=== PATIENT | female | born 1990 | race Caucasian/White ===

== ENCOUNTER → 2018-07-23 | Outpatient (CLI) | payer BC ==
[~2018-07-23] MED LIST: OMEG1CAP54; PREN-127 PO
[2018-07-23 12:22] LABS: PLATELET COUNT, AUTOMATED 233 K/uL (150-450)
== END ==
LOC: LAB 11:13
PROVIDERS: ATTEND Obstetrics & Gynecology
DX: Z34.91 Encounter for supervision of normal pregnancy, unspecified, first trimester (principal)
CPT/HCPCS: 36415; 85025; 86592; 86703; 86762; 86850; 86900; 86901; 87340

== ENCOUNTER → 2018-07-28 | Outpatient (CLI) | payer BC | LOC: LAB 08:01 | PROVIDERS: ATTEND Student in an Organized Health Care Education/Training Program | DX: Z11.3 Encounter for screening for infections with a predominantly sexual mode of transmission (principal) | CPT/HCPCS: 87491; 87591 ==

== ENCOUNTER → 2018-09-16 | Outpatient (CLI) | payer BC ==
--- NOTE | 2018-09-16 17:57 | RADIOLOGY IMAGING REPORT ---
[place] [facility] [place] NAME: Alana Petty : 1990 MR: [id number] V: [id number] EXAM DATE: ORDERING PHYSICIAN: LÁZARO SOLITARIO TECHNOLOGIST: Location: [facility] Patient: Alana Petty : 1990 Visit/Account:[id number] Date of Sevice: 09/16/2018 EXAMINATION: Ultrasound transabdominal OB > 14 weeks with anatomic evaluation HISTORY: . COMPARISON: None. TECHNIQUE: Transabdominal imaging was performed for assessment of the fetus and maternal pelvic structures. T ransvaginal imaging was not performed. FINDINGS: Placenta: Posterior fundal, unremarkable and well removed from the internal os without previa. In th e long axis view, placental cord insertion is less than 2 cm from the nearest adjacent margin (1.8 cm ). Uterus: Gravid, otherwise normal Cervix: Grossly long and closed Maternal Ovaries: Not visualized. Maternal and other adnexa findings: Grossly unremarkable. Intrauterine gestations: One. presentation: Primarily transverse but variable. heart rate: Normal and regular at 153 bpm Amniotic fluid index: 18.8 cm Largest amniotic fluid pocket: 5.5 cm Gestational Parameters: BPD: 4.4 cm 19 weeks/3 days; 67 percentile HC: 17.2 cm 19 weeks/6 days; 71 percentile AC: 14.9 cm 20 weeks/1 day; 81 percentile FL: 2.9 cm 19 weeks/0 days; 41 percentile Average ultrasound age (AUA): 19 weeks/5 days, DOMINGO 02/05/2019 Estimated gestational age by reported DOMINGO: 19 weeks/0 days, DOMINGO 02/10/2019 Estimated weight (EFW): 301 grams +/- 44 grams EFW for DOMINGO: 80th percentile Anatomic Survey: Intracranial structures, 4-chamber heart, stomach, kidneys, urinary bladder, spine, 3-vessel cord and cord insertion are unremarkable. Two upper and two lower extremities visualized. Cardiac ventricula r outflow tracts, palate and lips are unremarkable in appearance. IMPRESSION: 1. Single live intrauterine gestation; average ultrasound age 19 weeks/5 days. 2. Unremarkable anatomic survey. 3. Marginal placental cord insertion. Report Dictated By: Gokul Hatfield MD at 09/16/2018 5:47 PM Report E-Signed By: Gokul Hatfield MD at 09/16/2018 5:53 PM WSN:[id number]
== END ==
LOC: US 06:48
PROVIDERS: ATTEND Advanced Practice Midwife
DX: Z02.9 Encounter for administrative examinations, unspecified (principal)

== ENCOUNTER → 2018-11-08 | Outpatient (CLI) | payer BC ==
[~2018-11-08] MED LIST changes: +DIPH0.5S2 IM
[2018-11-08 17:04] LABS: PLATELET COUNT, AUTOMATED 216 K/uL (150-450)
== END ==
LOC: LAB 15:40
PROVIDERS: ATTEND Advanced Practice Midwife
DX: Z34.92 Encounter for supervision of normal pregnancy, unspecified, second trimester (principal)
CPT/HCPCS: 36415; 82950; 85025

== ENCOUNTER → 2018-11-25 | Outpatient (CLI) | payer BC ==
--- NOTE | 2018-11-25 14:28 | RADIOLOGY IMAGING REPORT ---
FACILITY: [facility] - [place] PATIENT NAME: Alana Petty : 1990 MR: [id number] V: [id number] EXAM DATE: ORDERING PHYSICIAN: LÁZARO SOLITARIO TECHNOLOGIST: Location: [facility] Patient: Alana Petty : 1990 Visit/Account:[id number] Date of Sevice: 11/25/2018 EXAMINATION: Ultrasound transabdominal OB > 14 weeks with anatomic evaluation HISTORY: Size greater than dates COMPARISON: September 16, 2018 TECHNIQUE: Transabdominal imaging was performed for assessment of the fetus and maternal pelvic structures. T ransvaginal imaging was not performed. FINDINGS: Placenta: Fundal without previa. Uterus: Gravid, otherwise normal Cervix: Long and closed. Maternal Ovaries: Not visualized. Maternal and other adnexa findings: Not visualized Intrauterine gestations: One. presentation: Cephalic heart rate: Normal and regular at 140 bpm Amniotic fluid index: 13.82 cm Largest amniotic fluid pocket: 4.28 cm Gestational Parameters: BPD: 7.7 cm 31 weeks/ there days, 90% HC: 28.29 cm 31 weeks/ one days, 77% AC: 26.68 cm 30 weeks/ six days, 89% FL: 5.85 cm 30 weeks/ four days, 79% Average ultrasound age (AUA): 31 weeks/zero days, DOMINGO 01/27/2019 Estimated gestational age by DOMINGO: 29 weeks/zero days, DOMINGO 02/10/2019 Estimated weight (EFW): 1632 grams +/- 238 grams EFW for DOMINGO: 93 percentile Anatomic Survey: Anatomic survey not performed IMPRESSION: Single viable fetus in cephalic presentation with an estimated gestational age by measur ements of 31 weeks and zero days. The estimated gestational age by LMP is 29 weeks and zero days. Estimated weight is 1632 g which is equivalent to the 93rd percentile Report Dictated By: Kandis Guallpa MD at 11/25/2018 2:18 PM Report E-Signed By: Kandis Guallpa MD at 11/25/2018 2:23 PM WSN:[email or web address]
== END ==
LOC: RAD 09:30
PROVIDERS: ATTEND Advanced Practice Midwife
DX: Z02.9 Encounter for administrative examinations, unspecified (principal)

== ENCOUNTER → 2019-01-03 | Outpatient (CLI) | payer BC ==
--- NOTE | 2019-01-03 14:01 | RADIOLOGY IMAGING REPORT ---
FACILITY: [facility] - [place] PATIENT NAME: Alana Petty : 1990 MR: [id number] V: [id number] EXAM DATE: ORDERING PHYSICIAN: APRYL MCKEON TECHNOLOGIST: Location: [facility] - [place] Patient: Alana Petty : 1990 Visit/Account:[id number] Date of Sevice: 01/03/2019 EXAMINATION: Ultrasound transabdominal OB > 14 weeks with anatomic evaluation HISTORY: Uterine size discrepancy. COMPARISON: None. TECHNIQUE: Transabdominal imaging was performed for assessment of the fetus and maternal pelvic structures. T ransvaginal imaging was not performed. FINDINGS: Placenta: Fundal without previa. Uterus: Gravid, otherwise normal Cervix: Long and closed. Maternal Ovaries: Not visualized. Maternal and other adnexa findings: Negative. Intrauterine gestations: One. presentation: Cephalic heart rate: Normal and regular at 129 bpm Amniotic fluid index: 10.04 cm Largest amniotic fluid pocket: 5.21 cm Gestational Parameters: BPD: 8.93 cm 36 weeks/ 1 days, 89 percentile HC: 32.20 cm 36 weeks/ 3 days, 61 percentile AC: 33.11 cm 37 weeks/ 1 days, greater than 98 percentile FL: 6.90 cm 35 weeks/ 3 days, 64 percentile Average ultrasound age (AUA): 36 weeks/2 days, Estimated gestational age by LMP: 34 weeks/4 days, DOMINGO 02/10/2019 Estimated weight (EFW): 2942 grams +/- 430 grams EFW for LMP: 92 percentile Anatomic Survey: Anatomy is grossly normal. IMPRESSION: 1. Single living intrauterine fetus in the cephalic presentation. 2. Ultrasound age is consistent with gestational age by LMP. Ultrasound age is 36 weeks and 2 days. Gestational age by LMP is 34 weeks and 4 days, corresponding to estimated date of delivery 02/10/2019 . 3. weight is 2942 g, which is at the 92nd percentile. Report Dictated By: Nazario Underwood at 01/03/2019 1:50 PM Report E-Signed By: Nazario Underwood at 01/03/2019 1:56 PM WSN:[id number]
== END ==
LOC: RAD 10:03
PROVIDERS: ATTEND Student in an Organized Health Care Education/Training Program
DX: Z02.9 Encounter for administrative examinations, unspecified (principal)

== ENCOUNTER → 2019-01-17 | Outpatient (CLI) | payer BC | LOC: LAB 08:18 | PROVIDERS: ATTEND Advanced Practice Midwife | DX: Z36.85 Encounter for antenatal screening for Streptococcus B (principal) | CPT/HCPCS: 87081 ==

== ENCOUNTER → 2019-01-31 | Outpatient (CLI) | payer BC ==
--- NOTE | 2019-01-31 13:09 | RADIOLOGY IMAGING REPORT ---
FACILITY: PATIENT NAME: Alana Petty : 1990 MR: [id number] V: [id number] EXAM DATE: ORDERING PHYSICIAN: LÁZARO SOLITARIO TECHNOLOGIST: Location: [facility] - [place] Patient: Alana Petty : 1990 Visit/Account:[id number] Date of Sevice: 01/31/2019 EXAMINATION: Ultrasound transabdominal OB > 14 weeks with anatomic evaluation HISTORY: Size greater than dates COMPARISON: 01/03/2019 TECHNIQUE: Transabdominal imaging was performed for assessment of the fetus and maternal pelvic structures. T ransvaginal imaging was not performed. FINDINGS Placenta: Fundal without previa. Uterus: Gravid, otherwise normal Cervix: Closed Maternal Ovaries: Not visualized. Maternal and other adnexa findings: Negative. Intrauterine gestations: One. presentation: Vertex heart rate: Normal and regular at 129 bpm Amniotic fluid index: 13.5 cm Largest amniotic fluid pocket: 4.8 cm Gestational Parameters: BPD: 9.0 cm 37 weeks, 0 days, 32nd percentile HC: 34.2 cm 39 weeks, 4 days, 57th percentile AC: 34.3 cm 38 weeks, 2 days, 61st percentile FL: 7.2 cm 37 weeks, 2 days, 21st percentile Average ultrasound age (AUA): 38 weeks, 1 day, DOMINGO based on AUA 02/13/2019 Estimated weight (EFW): 3355 grams +/- 490 grams EFW: 50th percentile IMPRESSION: 1. Single live early intrauterine gestation with dates and measurements as above Report Dictated By: Dao Toth DO at 01/31/2019 12:53 PM Report E-Signed By: Dao Toth DO at 01/31/2019 1:01 PM WSN:[id number]
== END ==
LOC: US 10:13
PROVIDERS: ATTEND Advanced Practice Midwife
DX: O26.843 Uterine size-date discrepancy, third trimester (principal)

== ENCOUNTER → 2019-02-14 | Outpatient (CLI) | payer BC ==
--- NOTE | 2019-02-14 14:32 | RADIOLOGY IMAGING REPORT ---
[facility] PATIENT NAME: Alana Petty : 1990 MR: [id number] V: [id number] EXAM DATE: ORDERING PHYSICIAN: LÁZARO SOLITARIO TECHNOLOGIST: Location: [facility] Patient: Alana Petty : 1990 Visit/Account:[id number] Date of Sevice: 02/14/2019 EXAMINATION: Ultrasound transabdominal OB > 14 weeks with anatomic evaluation HISTORY: Postdates COMPARISON: January 31, 2019 TECHNIQUE: Transabdominal imaging was performed for assessment of the fetus and maternal pelvic structures. T ransvaginal imaging was not performed. FINDINGS: There is a single fetus in cephalic presentation. The placenta is posterior without evidence of previa heart rate is 152 bpm SINA measured 6.06 cm, MVP measures 3.16 cm. The biophysical profile score is eight out of eight Gestational age by LMP is 40 weeks and four days. Umbilical cord Doppler was not performed IMPRESSION: Biophysical profile score is eight out of eight Report Dictated By: Kandis Guallpa MD at 02/14/2019 2:07 PM Report E-Signed By: Kandis Guallpa MD at 02/14/2019 2:24 PM WSN:[email or web address]
== END ==
LOC: RAD 13:13
PROVIDERS: ATTEND Advanced Practice Midwife
DX: O48.0 Post-term pregnancy (principal)

== ENCOUNTER 2019-02-16 05:00 | Inpatient (IN) | payer BC ==
[~2019-02-16] VITALS: Ht 170.2 cm; Wt 84.8 kg
[2019-02-16] VITALS (12 sets, daily range): BP systolic 86–136; BP diastolic 57–80; Ht 170.2 cm; Wt 84.8 kg
[2019-02-16] MEDS ORDERED: LIDOCAINE/SOD BICARB 8.4% SYR SC PRN (05:50)
[2019-02-16] MEDS ORDERED: FAMOTIDINE(*) 20MG/50ML PREMIX 50 ML IVPB PRN (05:50)
[2019-02-16] MEDS ORDERED: METOCLOPRAMIDE 10 MG/2 ML SDV IVP PRN (05:50)
[2019-02-16] MEDS ORDERED: OXYTOCIN 30 UNIT/NS 500 ML 500 ML IV PRN (05:50)
[2019-02-16] MEDS ORDERED: LIDOCAINE 1% LOCAL 300 MG/30ML INJ PRN (05:50)
[2019-02-16] MEDS ORDERED: fentaNYL CITR 100 MCG/2 ML AMP IVP PRN (05:50)
[2019-02-16] MEDS ORDERED: ceFAZolin(*) 2GM/D5W 50ML 50 ML IVPB PRN (05:50)
[2019-02-16 06:22] LABS: PLATELET COUNT, AUTOMATED 200 K/uL (150-450)
[2019-02-16] MEDS ORDERED: ACETAMINOPHEN 325 MG TAB PO PRN ×2 (06:45→22:05)
[2019-02-16] MEDS ORDERED: ONDANSETRON 4 MG/2 ML VIAL IVP PRN (06:45)
[2019-02-16] MEDS ORDERED: CALCIUM CARBONATE 500 MG CHEW PO PRN (06:45)
--- NOTE | 2019-02-16 08:53 | History & Physical ---
History of Present Illness Age of Patient: 29 : 1 Para or TPAL: 0 EDC per LMP: Feb 10, 2019 Estimated Gestational Age: 40.6 Chief Complaint Pt reports that her contractions began Thursday evening 02/14 after her appointment in clinic with a cervical check. They were irregular throughout the night and became more regular on Thursday morning. Bowel 6 PM on Thursday they became more regular and she had difficulty sleeping throughout the night. Good m ovement. She denies leaking of fluid, vaginal bleeding. She does report she had some bloody show and mucous plug earlier this morning before coming in. She denies headache, vision changes, and right upper quadrant pain. She feels her contractions mostly in the back but some in the lower pelvis. Her is at the bedside and appears very supportive. She would prefer to expectantly manage at this time History Patient's Blood Type: A Positive Rubella Status: Non-Immune Group B Strep Screen: Negative Allergies: Coded Allergies: No Known Drug Allergies (Unverified , 07/23/18) Social History: Denies etoh, smoking and drug abuse including marijuana Family History: Anxiety disorder BROTHER OR SISTER FH: alcoholism FATHER BROTHER OR SISTER FH: cancer MGF (Bladder Cancer ) FH: depression BROTHER OR SISTER FH: diabetes mellitus MOTHER (GDM ) MGF FH: hypertension MGM Med Rec Home Meds Reported Medications Vits W-Ca,Fe,Fa(<1MG) ( VITAMINS) 1 Each Tablet, 1 EACH PO DAILY, TAB 07/23/18 [place]-3 Fatty Acids/Fish Oil (FISH OIL PEARLS SOFTGEL) Unknown Strength Capsule 07/23/18 Review of Systems Constitutional: No Fever Eyes: No Vision Change Cardiovascular: No Chest Pain Respiratory: No Shortness of Breath Gastrointestinal: No Nausea, No Vomiting, No Diarrhea, No Dysphagia; Abdominal Pain Musculoskeletal: Pain (back with contractions) Psychiatric: No Depression, No Anxiety Exam General Exam Vital Signs Vital Signs Date Time Temp Pulse Resp B/P (MAP) Pulse Ox O2 Delivery O2 Flow Rate FiO2 02/16/19 05:30 98.6 86 17 136/73 (94) 98 Room Air General Apperance: Alert/Awake/No Acute Distress Neuro: No Gross deficits Eyes: Normal Extraocular Movement & Vison ENT: Normal Cardiovascular: Regular Rate and Rhythm Respiratory: No Respiratory Distress Abdomen: Gravid - Non-Tender, RUQ Non-Tender, Fundus - Non-Tender : Normal Musculoskeletal: No Weakness/Pain Extremities: No Cyanosis,Clubbing or Edema Integumentary: Skin Intact without Lesions or Rash Psychological: Alert & Oriented X3 Vaginal Discharge/Fluid?: Bloody Show Presentation: Vertex Uterine Contractions(Q min): 6 Uterine Contraction Strength: Moderate UC Resting Tone: Soft Fetus Feeling Movement?: Yes Estimated Weight(grams): 3700 Heart Tones: 140 Heart Tone Variabilty: Moderate FHT Accelerations: 15X15 FHT Decelerations: Variable FHT Category: II Medical Decision Making Data Points Result Diagram: 02/16/19 0610 Assessment and Plan Hospital 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 at 40w6d wks with an Estimated Date of Delivery: 02/10/19 dated by LMP and first trimester US Labor state: Early labor, encourage upright positions and ambulating to progress labor, Pt desires expectant management for now. We did review R/B/A of AROM and Pitocin augmentation. well-being: Category II FHT for variable decelerations: continuous monitoring Maternal well-being: VSS, normotensive and afebrile, membranes presumed intact PNL: GBS neg, Type/Rh A+, rubella nonimmune Pain Management: Plans for unmedicated Feed: Breast c/b: * Rubella nonimmune: MMR * S>D: last US showed 50%tile * Postdates : SINA 6, BPP 8/8 on 02/14/19 Anticipate Labor progression, re-evaluate in 2-3 hours or prn LÁZARO SOLITARIO CNM Feb 16, 2019 08:53
--- NOTE | 2019-02-16 10:57 | Labor Progress Note ---
Labor Subjective Progress Notes Subjective Pt is continuing to feel contractions in her back, but when changes position to hands and knees more in the front. Feeling pretty fatigued as been in labor for some time. Vaginal Discharge/Fluid: Bloody Show Labor Pain: Moderate Neurological: No Headache Eyes: No Visual Disturbances Labor Objective Vital Signs Vital Signs Date Time Temp Pulse Resp B/P (MAP) Pulse Ox O2 Delivery O2 Flow Rate FiO2 02/16/19 05:30 98.6 86 17 136/73 (94) 98 Room Air Vaginal Discharge/Fluid?: Bloody Show Cervical Dialation: 4 Cervical Effacement (%): 80 Cervical Consistency: Moderate Cervical Position: Mid Station: -2 Presentation: Vertex Uterine Contractions(Q min): 6 Uterine Contraction Strength: Strong UC Resting Tone: Soft Fetus Estimated Weight(grams): 3700 Heart Tones: 130 Heart Tone Variabilty: Moderate FHT Accelerations: Present, 15X15 FHT Decelerations: Variable FHT Category: II General Exam General Appearance: Alert/Awake/No Acute Distress ENT: Normal Cardiovascular: Normal Rhythm & Peripheral Pulses Respiratory: No Respiratory Distress Abdomen: Gravid - Non-Tender, RUQ Non-Tender, Fundus - Non-Tender : Normal Integumentary: Skin Intact without Lesions or Rash Psychological: Alert & Oriented X3, Appropriate Mood & Affect Other Result Diagram: 02/16/19 0610 Assessment and Plan 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 at 40w6d wks with an Estimated Date of Delivery: 02/10/19 dated by LMP and first trimester US Labor state: early active labor, continue to encourage ambulating and upright positions. Pt would like to continue to expectantly manage for a little longer. Discussed that augmentation may needed well-being: Category II FHT for variables: continuous monitoring Maternal well-being: VSS, normotensive and afebrile, membranes presumed intact PNL: GBS Neg, Type/Rh A+, rubella nonimmune Pain Management: Coping well with position changes, but starting to get fatigued, will try hydrotherapy Feed: Breast c/b: * Rubella nonimmune: MMR * S>D: last US showed 50%tile * Postdates : SINA 6, BPP 8/8 on 02/14/19 Anticipate labor progression, re-evaluate in 2-3 hours or prn LÁZARO SOLITARIO CNM Feb 16, 2019 10:57
--- NOTE | 2019-02-16 13:25 | Labor Progress Note ---
Labor Subjective Progress Notes Subjective Pt is considering an epidural as she is so exhausted. She feels frustrated because every time she gets in a good position is does not trace baby. Contractions continue to be felt mostly in the back and she has occasional rectal pressure. They are considering Pitocin if needed. Feeling Movement?: Yes Vaginal Discharge/Fluid: Bloody Show Labor Pain: Moderate, Severe (at times) Neurological: Headache Eyes: No Visual Disturbances Labor Objective Vital Signs Vital Signs Date Time Temp Pulse Resp B/P (MAP) Pulse Ox O2 Delivery O2 Flow Rate FiO2 02/16/19 05:30 98.6 86 17 136/73 (94) 98 Room Air Vaginal Discharge/Fluid?: Bloody Show Cervical Dialation: 5 Cervical Effacement (%): 90 Cervical Consistency: Soft Cervical Position: Mid Station: -1 Presentation: Vertex Uterine Contractions(Q min): 2 Uterine Contraction Strength: Strong UC Resting Tone: Soft Fetus Estimated Weight(grams): 3700 Heart Tones: 135 Heart Tone Variabilty: Moderate FHT Accelerations: Present, 15X15 FHT Decelerations: None FHT Category: I General Exam General Appearance: Alert/Awake/No Acute Distress ENT: Normal Neck: No Masses Cardiovascular: Normal Rhythm & Peripheral Pulses Respiratory: No Respiratory Distress, Clear to Auscultation Abdomen: Gravid - Non-Tender, Fundus - Tender : Normal Psychological: Alert & Oriented X3, Appropriate Mood & Affect Other Result Diagram: 02/16/19 0610 Assessment and Plan 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 at 40w6d wks with an Estimated Date of Delivery: 02/10/19 dated by LMP and first trimester US Labor state: Active labor with adequate contraction pattern, but good cervical change. Continue to encourage ambulating and upright positions for descent. Reviewed epidural procedure with patient and . She is unsure at this time and wants to try a little longer without. Continue expectant management. If contractions space out consider adding Pitocin. well-being: Category I FHT: continuous monitoring (because of previous decelerations) with NOVI so patient can move around freely Maternal well-being: VSS, normotensive and afebrile, membranes presumed intact PNL: GBS Neg, Type/Rh A+, rubella nonimmune Pain Management: Considering epidural as feeling very exhausted Feed: Breast c/b: * Rubella nonimmune: MMR * S>D: last US showed 50%tile * Postdates : SINA 6, BPP 8/8 on 02/14/19 Anticipate labor progression, re-evaluate in 2-3 hours or prn LÁZARO SOLITARIO CNM Feb 16, 2019 13:25
[2019-02-16] MEDS ORDERED: BUPIVACAINE 0.5% INJ 30ML VIAL EPI PRN (15:05)
[2019-02-16] MEDS ORDERED: LIDOCAINE/PF 2% 200MG/10ML AMP 200 MG/10 ML AMPUL EPI PRN (15:05)
[2019-02-16] MEDS ORDERED: FENTANYL/ROPIVACAINE 100 ML BAG EPI PRN (15:05)
[2019-02-16] MEDS ORDERED: fentaNYL CITR 100 MCG/2 ML AMP IT PRN (15:05)
[2019-02-16] MEDS ORDERED: LIDO/EPI 2% MPF 1:200,000 20ML EPI PRN (15:05)
[2019-02-16] MEDS ORDERED: BUPIVACAINE 0.25% MPF INJ EPI PRN (15:05)
[2019-02-16] MEDS ORDERED: ePHEDrine 25 MG/5 ML DISP.SYR IVP ONE (15:06)
[2019-02-16] MEDS: LR(*) 1000 ML BAG 1,000 ML IV SCH ×2 (15:50→16:45)
--- NOTE | 2019-02-16 16:42 | Anesthesia OB Pre-Anes Eval ---
History of Present Illness Anesthesia Start Date: Feb 16, 2019 Anesthesia Start Time: 09:15 OB Anesthesia Diagnosis: spontaneous labor Complications: none known EDC: Feb 10, 2019 : 1 Para: 0 Vital Signs: .Epidural anesthesia risks, complications and benefits explained to patient's satisfaction for labor and vaginal delivery and/or section. Vital Signs Date Time Temp Pulse Resp B/P (MAP) Pulse Ox O2 Delivery O2 Flow Rate FiO2 02/16/19 05:30 98.6 86 17 136/73 (94) 98 Room Air Hematology Test 02/16/19 06:10 White Blood Count 15.1 k/uL (4.5-11.0) H Red Blood Count 3.96 M/uL (4.17-5.56) L Hemoglobin 13.0 g/dL (12.0-16.0) Hematocrit 37.9 % (34.0-47.0) Mean Corpuscular Volume 95.6 fL (80.0-96.0) Mean Corpuscular Hemoglobin 32.9 pg (26.0-33.0) Mean Corpuscular Hemoglobin Concent 34.4 g/dL (32.0-36.0) Red Cell Distribution Width 13.1 % (11.5-14.5) Platelet Count 200 K/uL (150-450) Mean Platelet Volume 9.4 fL (7.2-11.1) Neutrophils (%) (Auto) 87.6 % (39.4-72.5) H Lymphocytes (%) (Auto) 7.7 % (17.6-49.6) L Monocytes (%) (Auto) 4.3 % (4.1-12.4) Eosinophils (%) (Auto) 0.3 % (0.4-6.7) L Basophils (%) (Auto) 0.1 % (0.3-1.4) L Nucleated RBC Relative Count (auto) 0.0 /100WBC Neutrophils # (Auto) 13.2 K/uL (2.0-7.4) H Lymphocytes # (Auto) 1.2 K/uL (1.3-3.6) L Monocytes # (Auto) 0.7 K/uL (0.3-1.0) Eosinophils # (Auto) 0.0 K/uL (0.0-0.5) Basophils # (Auto) 0.0 K/uL (0.0-0.1) Nucleated RBC Absolute Count (auto) 0.00 K/uL Pain Ratin (at 9 am tis morning pt was having pain levels of 2/10 with contractions. she was pleasant and attentive for anesthesia counseling. Signs of infection and post dural MONTOYA reviewed w pt and spouse.) Result Diagram: 02/16/19 0610 Height (Inches): 67.00 Weight (Pounds): 187 BMI (kg/m2): 30 Past Medical History Surgical History: no surgical history Previous Anesthesia: other (local for dental) Attended Childbirth Classes?: No Hx Anesthesia Reactions: No Hx Family Anesthesia Reaction: No Home Meds Reported Medications Vits W-Ca,Fe,Fa(<1MG) ( VITAMINS) 1 Each Tablet, 1 EACH PO DAILY, TAB 07/23/18 [place]-3 Fatty Acids/Fish Oil (FISH OIL PEARLS SOFTGEL) Unknown Strength Capsule 07/23/18 Allergies: Coded Allergies: No Known Drug Allergies (Unverified , 07/23/18) Anesthesia OB ROS Neurological: No migraines/headaches, No seizures, No neuropathy, No other ENT: Denies Tooth caps, Denies Loose teeth, Denies Chipped teeth, Denies Dentures, Denies Bridges, Denies Retainers, Denies Veneers, Denies Implants, Denies Tongue ring, Denies Other Pulmonary: No asthma, No smoker (pks/day/yrs), No other Airway Class: ll Cardiovascular ROS: No edema, No arrhythmia, No other GI ROS: clear liquids (instructed for after epidural) Last Solids Date: Feb 15, 2019 Last Solids Time: 22:00 ROS: No Herpes, No STD(s), No Liver Disease, No Renal Disease, No Other Endocrine ROS: No diabetes, No gestational diabetes, No thyroid disorder, No other Musculoskeletal ROS: No low back pain, No low back injury, No scoliosis, No other ASA Classification: 2 Assessment and Plan Anesthesia Plan: CSE Assessment: Able to maintain good position for epidural despite pain of labor. Attentive at side. SADIQ ARMENDARIZ CRNA Feb 16, 2019 16:42
--- NOTE | 2019-02-16 16:56 | Procedure Note ---
Anesthetic Placement Note Anesthesia Plan: CSE Permit for Anesthesia Signed: Yes Anesthesia Technique: Patient Sitting Anesthesia Prep: Chlorhexidine (Sterile procedure, room traffic stopped. 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 Clear fen drape.) Interspace: L 3-4 Local Anesthetic: 1% Lidocaine, 25 Gauge Needle Amount Local - cc's: 2 Anesthesia Needle: 17g Touhy/Schliff Anesthesia Attempts: 1 Loss of Resistance: Normal Saline Depth of CHRISTIANO (cm): 5.6 Epidural Needle Placement: No CSF, No Blood, No Parasthesia Intrathecal Needle: 27 Gauge Pencan Cerebral Spinal Fluid: Yes, Clear Catheter Insertion (cm): 4 Catheter Type: [place]upe - Spring Wound Epidural Dressing: Tegaderm, Tape (left abdomen) Anesthesia Tray: Lot Number ([id number]), Expiration Date (2020-03-12), Reference Number ([id number]) Comment: Alana relates a decrease in pain to 0-1/10 within 3 minutes of intrathecal. VSS. Pt demonstrated a 3 minute deceleration that spontaneously resolved after position change, andO2 per NRM and deep breathing. The onset of this was about 8 minutes after the Epidural pump was started. VSS now. Dr. Ng was present for the deceleration. Anesthesia Medications: Intrathecal Dose: mcg Fentanyl (20), mg Marcaine MPF (0.25% 1.6 ml), Time (1534) Epidural Test Dose: 1.5 Lido/Epi (1:200,000), Dose - mL (3), Time (1536), Negative Epidural Loading Dose: 0.2% Ropivicaine, With Fentanyl 2mcg/ml, Dose - ml (5), Time (1540) Epidural Infusion: 0.2% Ropivicaine, With Fentanyl 2mcg/ml, Start Time: (1545) Epidural Pump Setting: Bolus Dose - mL (8), Lockout - Minutes (20), Maintenance Rate - mL/hr (8), Maximum per Hour - mL (26) Complications: None SADIQ ARMENDARIZ CRNA Feb 16, 2019 16:56
--- NOTE | 2019-02-16 17:18 | Labor Progress Note ---
Labor Subjective Progress Notes Subjective Pt requested an epidural and is comfortable now. She was too exhausted to continue unmedicated. Feeling pressure but not pain. Feeling Movement?: Yes Vaginal Discharge/Fluid: Bloody Show Labor Pain: Comfortable Neurological: No Headache Eyes: No Visual Disturbances Labor Objective Vital Signs Vital Signs Date Time Temp Pulse Resp B/P (MAP) Pulse Ox O2 Delivery O2 Flow Rate FiO2 02/16/19 05:30 98.6 86 17 136/73 (94) 98 Room Air Vaginal Discharge/Fluid?: Bloody Show Cervical Dialation: 6 (Per nurse at 15:53) Cervical Effacement (%): 80 Cervical Consistency: Soft Cervical Position: Mid Station: -1 Presentation: Vertex Uterine Contractions(Q min): 3 Uterine Contraction Strength: Strong UC Resting Tone: Soft Fetus Estimated Weight(grams): 3700 Heart Tones: 140 Heart Tone Variabilty: Moderate FHT Accelerations: Present, 15X15 FHT Decelerations: Prolonged (one for 3 minutes and then return to baseline) FHT Category: II General Exam General Appearance: Alert/Awake/No Acute Distress Psychological: Alert & Oriented X3, Appropriate Mood & Affect Other Result Diagram: 02/16/19 0610 Assessment and Plan Hospital Day: [address] CROSS[address] GUARD Assessment: Stable ROAD CROSSING GUARD Plan: 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 at 40w6d wks with an Estimated Date of Delivery: 02/10/19 dated by LMP and first trimester US Labor state: Active labor with minimal cervical change prior to epidural. After epidural BBOW. Encourage extreme lateral positioning with peanut ball to facilitate descent.Will continue expectant management as long as baby tolerates. If contractions space out consider adding Pitocin or AROM. Handoff to Dr Ng at 1700. well-being: Category II FHT: continuous monitoring for epidural with ADEN Maternal well-being: VSS, normotensive and afebrile, BBOW PNL: GBS Neg, Type/Rh A+, rubella nonimmune Pain Management: Comfortable with epidural Feed: Breast c/b: * Rubella nonimmune: MMR * S>D: last US showed 50%tile * Postdates : SINA 6, BPP 8/8 on 02/14/19 Anticipate , re-evaluate in 2-3 hours or prn LÁZARO SOLITARIO CNM Feb 16, 2019 17:18
--- NOTE | 2019-02-16 17:40 | Labor Progress Note ---
Labor Subjective Progress Notes Subjective PT comfortable with epidural. No complaints. Good urine output. Feeling Movement?: Yes Vaginal Discharge/Fluid: Clear Fluid (AROM) Labor Pain: Mild Neurological: No Headache Labor Objective Vital Signs Vital Signs Date Time Temp Pulse Resp B/P (MAP) Pulse Ox O2 Delivery O2 Flow Rate FiO2 02/16/19 05:30 98.6 86 17 136/73 (94) 98 Room Air Vaginal Discharge/Fluid?: Clear Fluid Cervical Dialation: 6 Cervical Effacement (%): 90 Cervical Consistency: Soft Cervical Position: Anterior Station: -1 Presentation: Vertex (occiput transverse) Uterine Contraction Strength: Strong UC Resting Tone: Soft Fetus Heart Tones: 150 Heart Tone Variabilty: Moderate FHT Accelerations: Present FHT Decelerations: Variable (intermittent ) FHT Category: II General Exam General Appearance: Alert/Awake/No Acute Distress Respiratory: No Respiratory Distress Abdomen: Gravid - Non-Tender Extremities: No Cyanosis,Clubbing or Edema Psychological: Alert & Oriented X3, Appropriate Mood & Affect Other Result Diagram: 02/16/19 0610 Assessment and Plan 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
[2019-02-16] MEDS ORDERED: OXYTOCIN 10 UNIT/ML SDV ONE (20:26)
[2019-02-16] MEDS ORDERED: MORPHINE PF 5 MG/10 ML AMP ONE (20:26)
[2019-02-16] MEDS ORDERED: DEXAMETHASONE SOD 4 MG/ML VIAL ONE (20:26)
[2019-02-16] MEDS ORDERED: KETOROLAC 30 MG/ML VIAL ONE (20:26)
[2019-02-16] MEDS ORDERED: BUPIVACAINE 0.5% INJ 30ML VIAL ONE (20:26)
[2019-02-16] MEDS ORDERED: ONDANSETRON 4 MG/2 ML VIAL ONE (20:26)
[2019-02-16] MEDS ORDERED: LIDOCAINE/PF 2% 200MG/10ML AMP 200 MG/10 ML AMPUL ONE (20:26)
[2019-02-16] MEDS ORDERED: fentaNYL CITR 100 MCG/2 ML AMP ONE (20:26)
--- NOTE | 2019-02-16 20:50 | Labor Progress Note ---
Labor Subjective Progress Notes Subjective PT comfortable with epidural. Vaginal Discharge/Fluid: Clear Fluid Labor Pain: Mild Neurological: No Headache Labor Objective Vital Signs Vital Signs Date Time Temp Pulse Resp B/P (MAP) Pulse Ox O2 Delivery O2 Flow Rate FiO2 02/16/19 05:30 98.6 86 17 136/73 (94) 98 Room Air Cervical Consistency: Soft Cervical Position: Anterior Station: -1 Presentation: Vertex Uterine Contraction Strength: Strong UC Resting Tone: Soft Fetus Heart Tones: 155 Heart Tone Variabilty: Moderate FHT Accelerations: Absent FHT Decelerations: Late, Variable FHT Category: II General Exam General Appearance: Alert/Awake/No Acute Distress Respiratory: No Respiratory Distress Abdomen: Gravid - Non-Tender Psychological: Alert & Oriented X3, Appropriate Mood & Affect Other Result Diagram: 02/16/19 0610 Assessment and Plan Problems: (1) Uterine contractions Onset Date: ~ 02/15/2019 Status: Acute (2) Non-reassuring status Assessment & Plan: Recurrent late decels and intermittent deep variables present. Cervical exam has not progressed beyond 7 cm, suspect inadequate contractions. Unable to do pitocin at this time as fetus is not tolerating la bor. Pt consented for PLTCS. Risks, benefits and alternatives reviewed. Informed consent obtained. (3) Arrested active phase of labor TRAE CANCINO DO Feb 16, 2019 20:50
[2019-02-16] MEDS ORDERED: DLR(*) 1000 ML BAG 1,000 ML IV PRN (22:04)
[2019-02-16] MEDS ORDERED: MAGNESIUM HYDROXIDE* 30ML UDCP PO PRN (22:05)
[2019-02-16] MEDS ORDERED: MEASLES,MUMP,RUBELLA VAC 0.5ML SUBQ ONE (22:05)
[2019-02-16] MEDS ORDERED: LANOLIN OINT 7 GM TUBE TP PRN (22:05)
[2019-02-16] MEDS ORDERED: INFLUENZA VIRUS VAC 0.5ML SYR IM ONLY ONE (22:05)
[2019-02-16] MEDS ORDERED: PROMETHAZINE 25 MG/ML 1 ML AMP IVP PRN (22:05)
[2019-02-16] MEDS ORDERED: DIPHTH/TETANUS/ACEL. PERTUSSIS IM ONLY ONE (22:05)
[2019-02-16] MEDS ORDERED: ONDANSETRON 4 MG/2 ML VIAL IV PRN (22:05)
[2019-02-16] MEDS ORDERED: SIMETHICONE 80 MG CHEW CHEW PRN (22:05)
--- NOTE | 2019-02-16 22:07 | Post Operative Note ---
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 Ng Anesthesia: Epidural with bolus Diagnosis Pre-Op Diagnosis: Term IUP, nonreassuring status, arrest of dilation in the active phase Post-Op Diagnosis: Same as above Procedure Findings: Viable male , 7lb 12 oz, apgars 7 and 9, normal uterus, tubes and ovaries Procedure(s): PTLCS Specimen Removed:(Maybe N/A): Placenta, umbilical cord blood Complications: none Fluids Fluids: 1200cc Estimated Blood Loss: 600cc Dictated Date OP Note Dictated: Feb 16, 2019 TRAE NG DO Feb 16, 2019 22:07
--- NOTE | 2019-02-16 22:40 | OPERATIVE REPORT 1 ---
EVENT DATE: February 16, 2019 SURGEON: Teri Ng DO ANESTHESIA: Epidural with bolus. ISOTOPE TECHNOLOGIST: Surgical quality assistant. PREOPERATIVE DIAGNOSES 1. Intrauterine at term. 2. Nonreassuring status. 3. Arrest of dilation in the active phase. POSTOPERATIVE DIAGNOSES 1. Intrauterine at term. 2. Nonreassuring status. 3. Arrest of dilation in the active phase. PROCEDURE PERFORMED Primary low transverse section. SPECIMENS REMOVED Placenta and umbilical cord blood. COMPLICATIONS None. DISPOSITION Stable to recovery room. FINDINGS Viable male weighing 7 pounds 12 ounces. Apgars of 7 and 9. Normal uterus, tubes, and ovaries. DESCRIPTION OF PROCEDURE After informed consent was obtained, the patient was taken to the operating room. Epidural anesthesia was found to be adequate after bolus. Patient was placed on the operating table in the supine position with leftward tilt and then prepped and draped in normal sterile fashion. A Pfannenstiel skin incision was made using a scalpel and carried down to underlying layer of the fascia. Fascia was incised in midline and extended out laterally with sharp dissection. Ophleia clamps were then placed on the superior and inferior aspects of the fascia, and the fascia was tented up. Underlying rectus muscles were dissected off sharply. Rectus muscles were then in the midline. Peritoneum was entered digitally and extended out laterally with sharp dissection with good visualization of both bowel and bladder. At this time, the Bill abdominal retractor was placed and secured. Next, the lower uterine segment was incised in a transverse curvilinear fashion using the scalpel. The hysterotomy incision was then extended out laterally with blunt dissection. 's head was then delivered atraumatically, followed by the shoulders and body. was vigorous at . Delayed cord clamping was performed for 30 seconds. During this time, the nose and mouth were bulb suctioned, and then the three-vessel cord was doubly clamped and cut. The infant was handed off to our awaiting nursery staff. Next, a section of cord was passed off for assessment of umbilical cord blood. Placenta was delivered manually and noted to be intact. Uterus was exteriorized and cleared of all clots and debris, and hysterotomy incision was repaired in a running locked fashion using 0 Vicryl. A second layer of 0 Vicryl was used to perform an imbrication stitch, provided the patient with a double layer closure on her uterus. Next, irrigation was performed. Hysterotomy incision was visualized and noted to remain dry. The uterus was returned back to the abdomen. The uterus was fully inspected and was noted to be free of any structural defects such as fibroids, and both fallopian tubes and ovaries were normal. At this time, the gutters were cleared of any remaining clots and debris. Hysterotomy incision was checked again and also remained dry. At this time, the Bill abdominal retractor was removed, and our first count was performed and correct. We next put a single stitch of 0 Vicryl to reapproximate the muscle in [id number] fashion. We proceeded with closure of our fascia at this time. Fascia was reapproximated in the midline using #1 Vicryl. Subcutaneous layer was dried after irrigation. It was reapproximated in a running fashion using 3-0 Vicryl, and the skin was closed using a subcuticular stitch of 4-0 Monocryl reinforced with Dermabond skin glue. Patient tolerated the procedure well. Sponge, lap, and instrument counts were correct, and she was taken to the recovery room in stable condition. GUME
[2019-02-16] MEDS ORDERED: FAMOTIDINE(*) 20MG/50ML PREMIX 50 ML IVPB ONE (22:46)
[2019-02-17] VITALS (8 sets, daily range): BP systolic 102–119; BP diastolic 65–82
[2019-02-17] MEDS ORDERED: IBUPROFEN 800 MG TAB PO SCH (01:00)
[2019-02-17] MEDS: LR(*) 1000 ML BAG 1,000 ML IV SCH ×3 (01:50→21:50)
[2019-02-17] MEDS ORDERED: KETOROLAC 30 MG/ML VIAL IVP SCH ×3 (05:00→11:00)
[2019-02-17 06:31] LABS: PLATELET COUNT, AUTOMATED 168 K/uL (150-450)
--- NOTE | 2019-02-17 07:58 | OB/GYN Progress Note ---
OB Subjective Progress Notes Subjective Pt reports pain is mild. . No SOB or CP. Pt has not ambulated yet and still has catheter. No complaints. GI: NEG Nausea, NEG Vomiting, NEG Flatus Pain: Mild Neurological: No Headache OB Objective Physical Exam Vital Signs Date Time Temp Pulse Resp B/P (MAP) Pulse Ox O2 Delivery O2 Flow Rate FiO2 02/17/19 03:57 98.0 72 18 119/67 (84) 92 Room Air 02/16/19 22:50 2.0 Intake and Output 02/17/19 07:03 Intake Total 1100 ml Output Total 850 ml Balance 250 ml IV Total 1100 ml Output Urine Total 850 ml General Appearance: Alert/Awake/No Acute Distress Neurological: No Gross deficits Eyes: Normal Extraocular Movement & Vison ENT: Normal Neck: No Masses Cardiovascular: Normal Rhythm & Peripheral Pulses Respiratory: No Respiratory Distress Abdomen: Bowel Sounds Present, Fundus Firm (1 below umbilicus) Incision: Clean, Dry, Intact, Dermabond : Normal Extremities: No Cyanosis,Clubbing or Edema Integumentary: Skin Intact without Lesions or Rash Psychological: Alert & Oriented X3, Appropriate Mood & Affect Result Diagram: 02/17/19 0605 Assessment and Plan Problems: (1) Uterine contractions Onset Date: ~ 02/15/2019 Status: Resolved (2) Non-reassuring status Status: Resolved (3) Arrested active phase of labor Status: Resolved (4) delivery delivered Assessment & Plan: POD #1, routine postop and care. D/C [place] today and increase ambulation. IS to bedside. Anticipate d/c to home tomorrow. (5) Postoperative anemia due to acute blood loss Status: Acute Assessment & Plan: Pt asymptomatic and likely dilutional component, will obser ve for now. Iron at d/c. TRAE CANCINO DO Feb 17, 2019 07:58
[2019-02-17] MEDS: DOCUSATE CALCIUM 240 MG CAP PO SCH ×2 (08:51→20:38)
[2019-02-17] MEDS: FAMOTIDINE 20 MG TAB PO SCH ×2 (08:51→20:38)
[2019-02-17] MEDS ORDERED: MEASLES,MUMP,RUBELLA VAC 0.5ML SUBQ ONE (16:15)
[2019-02-17] MEDS: IBUPROFEN 800 MG TAB PO SCH (16:34)
--- NOTE | 2019-02-17 18:37 | Anesthesia Post Eval Note ---
Anesthesia Post Eval Note Vital Signs Date Time Temp Pulse Resp B/P (MAP) Pulse Ox O2 Delivery O2 Flow Rate FiO2 02/17/19 15:03 97.9 83 16 108/67 (81) 96 Room Air 02/16/19 22:50 2.0 Hematology Test 02/17/19 06:05 White Blood Count 19.0 k/uL (4.5-11.0) H Red Blood Count 3.11 M/uL (4.17-5.56) L Hemoglobin 10.2 g/dL (12.0-16.0) L Hematocrit 29.9 % (34.0-47.0) L Mean Corpuscular Volume 96.2 fL (80.0-96.0) H Mean Corpuscular Hemoglobin 32.7 pg (26.0-33.0) Mean Corpuscular Hemoglobin Concent 34.0 g/dL (32.0-36.0) Red Cell Distribution Width 13.5 % (11.5-14.5) Platelet Count 168 K/uL (150-450) Mean Platelet Volume 9.8 fL (7.2-11.1) Neutrophils (%) (Auto) 89.0 % (39.4-72.5) H Lymphocytes (%) (Auto) 5.3 % (17.6-49.6) L Monocytes (%) (Auto) 5.6 % (4.1-12.4) Eosinophils (%) (Auto) 0.0 % (0.4-6.7) L Basophils (%) (Auto) 0.1 % (0.3-1.4) L Nucleated RBC Relative Count (auto) 0.0 /100WBC Neutrophils # (Auto) 16.9 K/uL (2.0-7.4) H Lymphocytes # (Auto) 1.0 K/uL (1.3-3.6) L Monocytes # (Auto) 1.1 K/uL (0.3-1.0) H Eosinophils # (Auto) 0.0 K/uL (0.0-0.5) Basophils # (Auto) 0.0 K/uL (0.0-0.1) Nucleated RBC Absolute Count (auto) 0.00 K/uL Tolerated procedure well without apparent anesthetic complications. LP site clear, no redness or edema. Denies headache or any residual paresthesia. Vital Signs Stable, Patient comfortable and condition stable.Sign of infection and pos t dural punture MONTOYA reviewed. Pt. agrees to seek medical intervention should these occur. Pt able to participate in Eval: Yes Cardiovascular Status: Satisfactory Respiratory Status: Satisfactory Pain Managment: Satisfactory PO Nausea/Vomiting: Satisfactory Temperature Management: Satisfactory Mental Status: Alert, Oriented X3 Post-Op Hydration Status: Satisfactory, Tolerating PO Well, Voiding w/o Difficulty Anesthesia Type: CSE SADIQ ARMENDARIZ CRNA Feb 17, 2019 18:37
[2019-02-18] MEDS: IBUPROFEN 800 MG TAB PO SCH ×3 (00:25→17:13)
[2019-02-18 03:00] VITALS: BP 106/59
[2019-02-18] MEDS: LR(*) 1000 ML BAG 1,000 ML IV SCH ×2 (07:50→17:50)
[2019-02-18 08:20] VITALS: BP 110/76
[2019-02-18] MEDS ORDERED: IBUP800T37 PO (08:22)
[2019-02-18] MEDS ORDERED: PER PO (08:22)
--- NOTE | 2019-02-18 08:27 | OB/GYN Discharge Summary ---
Discharge Summary Reason for Hosp/Final Diag: (1) Uterine contractions Onset Date: ~ 02/15/2019 Status: Resolved (2) Non-reassuring status Status: Resolved (3) Arrested active phase of labor Status: Resolved (4) delivery delivered Hospital Course & Plan: STable for d/c to home. Postop instructions given to pt. Pt to RTO in 2 weeks for follow up. (5) Postoperative anemia due to acute blood loss Status: Acute Hospital Course & Plan: Pt asymptomatic, continue vitamins. Lates Vital Signs Vital Signs Date Time Temp Pulse Resp B/P (MAP) Pulse Ox O2 Delivery O2 Flow Rate FiO2 02/18/19 03:00 98.3 64 12 106/59 (75) 96 Room Air 02/16/19 22:50 2.0 Weight (Pounds): 187 Result Diagram: 02/17/19604 Condition: Improved Discharge: Home, Self Half-Way Meds Active Scripts Oxycodone/Acetaminophen (OXYCODONE/ACETAMINOPHEN 5MG/325 MG) 5 Mg/325 Mg Tab, 1 TAB PO Q4H PRN for PAIN for 3 Days, TAB Prov:TRAE NG DO 02/18/19 Reported Medications Vits W-Ca,Fe,Fa(<1MG) ( VITAMINS) 1 Each Tablet, 1 EACH PO DA REA, TAB 07/23/18 [place]-3 Fatty Acids/Fish Oil (FISH OIL PEARLS SOFTGEL) Unknown Strength Capsule 07/23/18 Follow up with: [facility] [phone] ([address] Ng ) Follow up in: 2 wks PO Discharge Diet: As Tolerates Discharge Activity: As Tolerates, No Heavy Lifting x 6 wks, No Heavy Lifting > 10lb, Pelvic Rest TRAE NG DO Feb 18, 2019 08:27
[2019-02-18] MEDS: DOCUSATE CALCIUM 240 MG CAP PO SCH ×2 (09:16→20:37)
[2019-02-18] MEDS: FAMOTIDINE 20 MG TAB PO SCH ×2 (09:17→20:37)
[2019-02-18 13:40] VITALS: BP 111/76
[2019-02-18] MEDS: oxyCODON/ACET (*)5/325MG (CII) 1 TAB TAB PO PRN ×2 (14:05→21:41)
[2019-02-18 15:30] VITALS: BP 118/77
[2019-02-18 19:30] VITALS: BP 121/74
[2019-02-18 23:41] VITALS: BP 119/72
[2019-02-19] MEDS: IBUPROFEN 800 MG TAB PO SCH ×2 (01:17→08:55)
[2019-02-19 03:35] VITALS: BP 105/67
[2019-02-19 08:30] VITALS: BP 111/74
[2019-02-19] MEDS: FAMOTIDINE 20 MG TAB PO SCH (08:55)
[2019-02-19] MEDS: DOCUSATE CALCIUM 240 MG CAP PO SCH (08:55)
[2019-02-19] MEDS: oxyCODON/ACET (*)5/325MG (CII) 1 TAB TAB PO PRN (08:56)
== END 2019-02-19 13:27 | disposition home or self-care (01) | DRG 787 ==
LOC: OB 05:00
PROVIDERS: ADMIT Student in an Organized Health Care Education/Training Program; ATTEND Student in an Organized Health Care Education/Training Program
PROC: 10907ZC Drainage of Amniotic Fluid, Therapeutic from Products of Conception, Via Natural or Artificial Opening (ICD-10-PCS; 2019-02-16)
PROC: 10D00Z1 Extraction of Products of Conception, Low, Open Approach (ICD-10-PCS; principal; 2019-02-16 20:41)
DX: O48.0 Post-term pregnancy (principal); D62 Acute posthemorrhagic anemia; O76 Abnormality in fetal heart rate and rhythm complicating labor and delivery; O62.1 Secondary uterine inertia; O90.81 Anemia of the puerperium; Z3A.40 40 weeks gestation of pregnancy; Z37.0 Single live birth; Z23 Encounter for immunization
CPT/HCPCS: 36415; 85025; 86850; 86900; 86901; 90471; 90707; J0690; J1100; J1885; J2001; J2270; J2405; J2590; J3010; J3490; J7120; S0020